=== PATIENT | female | born 1950 | race Caucasian/White ===

== ENCOUNTER 2016-11-18 06:20 | Day surgery (SDC) | payer MEDICARE, OTHER ==
--- NOTE | ~2016-11-18 | OP ---
Record Of Operation [facility] [address] [place]. [address] NAME: CHRISTA PARTIDA : 52 STATUS : REG [facility]#: [id number] AGE: 66 ADM/REG DATE : 11/18/16 MR#: [id number] REPORT SERV DATE: 11/18/16 DICTATED BY: EROS CASIANO DATE: 11/18/16 REPORT STATUS : Draft TRANSCRIBED BY: MODL DATE: 11/18/16 DATE OF PROCEDURE: PROCEDURE PERFORMED: Fiberoptic bronchoscopy, bronchoscopy with bronchoalveolar lavage of two separate lobes. PREOPERATIVE DIAGNOSIS: Bronchiectasis with persistent cough. POSTOPERATIVE DIAGNOSIS: Bronchiectasis with persistent cough plus chronic bronchitis. INDICATION: Bronchiectasis with persistent cough DESCRIPTION OF PROCEDURE: After risks and benefits were explained, informed consent was obtained. The patient received conscious sedation under care of Anesthesiology with use of propofol and did very well with no immediate complications. The bronchoscope was inserted via the right nostril and advanced beyond the vocal cords without difficulty. Her oropharynx was clear. Her lungs were clear. Her lower respiratory tract had some changes of chronic bronchitis with mild hyperemia throughout, and somewhat thick, but very clear secretions in the right middle lobe, with no airway obstruction. No endobronchial lesions. No central mucous plugging, Following airway inspection, we wedged the bronchoscope in the right middle lobe and then in the lingula, infused saline which was suctioned into Lukens trap for bronchoalveolar lavage. Those were combined and pulled together for bronchoalveolar lavage of the lingula and right middle lobe. The bronchoscope was then withdrawn and there were no immediate complications. IMPRESSION: Bronchiectasis and chronic bronchitis. Successful bronchoscopy. YOUNG/EMILEE Eros Casiano M.D. / [id number] CC: Sara Guzman M.D.
[~2016-11-18 06:20] MED LIST: AMIT25 PO; AMITIZA8 MCG PO; ARICEPT5 PO; BACDS PO; BREO ELLIPTA INH; CRESTOR10 PO; CYMBALTA60 PO; DEXLANT PO; DIFLUCAN PO; IMITREX50 PO; KLONO1 PO; LEVAQUIN750 MG PO; LORTAB10 PO; LYRICA225 MG PO; MINIVELLE1 EAC1 TOP; MSCONT15 PO; MULTIVIT/MIN PO; NAMENDA10 MG PO; NORCO1 TAB PO; PRIN20 PO; PROMETRIUM200 MG PO; TRILIPIX135 MG PO; VESICARE10 MG PO; ZYPREXA10 MG PO
[2016-11-18 09:52] LABS: BD FL SOURCE (NOT ORD) BAL; BF TOTAL CELL CT (NOT ORD 376 /MM3; BODY FLUID RBC (NOT ORD) 5000 /MM3
[2016-11-18 10:04] LABS: BD FL LYMPH (NOT ORD) 19 %; BF BASO (NOT OF) 0 %; BF LARGE MONONUCLEAR 29 %; BODY FLUID EOS (NOT ORD) 0 %; BODY FLUID SEG (NOT ORD) 52 %
== END 2016-11-18 23:59 | disposition home or self-care (01) ==
LOC: DMU 06:20
PROVIDERS: Internal Medicine Pulmonary Disease
PROC: 0B958ZX Drainage of Right Middle Lobe Bronchus, Via Natural or Artificial Opening Endoscopic, Diagnostic (ICD-10-PCS; 2016-11-18)
PROC: 0B998ZX Drainage of Lingula Bronchus, Via Natural or Artificial Opening Endoscopic, Diagnostic (ICD-10-PCS; principal; 2016-11-18 08:00)
DX: J47.9 Bronchiectasis, uncomplicated (principal); I10 Essential (primary) hypertension; K21.9 Gastro-esophageal reflux disease without esophagitis; F03.90 Unspecified dementia, unspecified severity, without behavioral disturbance, psychotic disturbance, mood disturbance, and anxiety; K58.9 Irritable bowel syndrome, unspecified; G62.9 Polyneuropathy, unspecified; G43.909 Migraine, unspecified, not intractable, without status migrainosus; H91.93 Unspecified hearing loss, bilateral; E78.00 Pure hypercholesterolemia, unspecified; M19.90 Unspecified osteoarthritis, unspecified site; F41.9 Anxiety disorder, unspecified; F32.9 Major depressive disorder, single episode, unspecified; Z97.4 Presence of external hearing-aid; N20.0 Calculus of kidney; Z90.710 Acquired absence of both cervix and uterus; Z87.440 Personal history of urinary (tract) infections; Z79.899 Other long term (current) drug therapy; Z98.890 Other specified postprocedural states
CPT/HCPCS: 87015; 87070; 87102; 87116; 87205; 88112; 89051

== ENCOUNTER 2016-12-15 23:50 | Inpatient (IN) | payer MEDICARE, OTHER ==
--- NOTE | ~2016-12-15 | IDS ---
Interim Discharge Summary [facility] [address] [place]. [address] NAME: CHRISTA PARTIDA : 52 STATUS : ADM IN PAT#: [id number] AGE: 66 ADM/REG DATE : 12/16/16 MR#: [id number] REPORT SERV DATE: 12/21/16 DICTATED BY: ENEIDA ARTHUR DATE: 12/21/16 REPORT STATUS : Draft TRANSCRIBED BY: MODL DATE: 12/21/16 ADMISSION DATE: 12/16/2016 DISCHARGE DATE: DATE OF INTERIM SUMMARY: 12/20/2016. INTERIM DIAGNOSES: 1. Streptococcus pneumoniae recurrent bronchitis. 2. Chronic obstructive pulmonary disease. 3. Diabetes type 2. 4. Neuropathy. 5. Hypertension. CONSULTATIONS: Infectious Disease. PERTINENT LABS: Lower culture, respiratory, abundant growth of strep pneumoniae. Glomerular basement membrane negative. Proteinase 3 antibody and myeloperoxidase antibody negative. antibody negative. Histoplasmosis is still pending. JUAN JOSE negative. Urine strep negative. BNP 68.3. CT with contrast: Bilateral multifocal lung infiltrates with regions of consolidation in the right middle lobe and lingula consistent with multifocal pneumonia or inflammatory lung disease. No adenopathy. Aberrant right subclavian artery. HOSPITAL COURSE: Please see H and P for complete details of HPI. Briefly, Ms. Partida is a 66-year-old female with history of COPD, diabetes, neuropathy, and hypertension, who presents after having what she initially reports as 1 year's worth of shortness of breath and overall just weakness type feeling that has been progressive over the last few weeks. Has had minimal response to outpatient treatment and supportive therapy. Comes in for continued weakness and increased cough or dyspnea and noted to be on similar to bronchitis type infection. Has been treated for multiple bouts of bronchitis without resolution. The patient was placed on IV steroids, IV antibiotics, with ID and Pulmonary monitoring. Due to CT findings, workup for additional components of cause of recurrent bronchitis being performed. Currently, even histoplasmosis labs are still pending. This patient is continued on IV antibiotics and possible conversion to p.o. antibiotics on 12/21/2016 depending on response on culture and per ID. Her COPD has been improving with IV steroids. We will discontinue IV steroids when okay with Pulmonary. The patient has been on sliding scale insulin for diabetes, and discussed diet changes. Does have abnormal TSH with free T4 within normal limits, likely reactive component, will need outpatient followup. Continued on pregabalin for neuropathy and ALPA inhibitor for hypertension. DISPOSITION: Within 24 to 48 hours depending on ability to convert from IV steroids and IV antibiotics to p.o. and followup as well as activity. The patient also has Physical Therapy evaluation along with Home Health for COPD evaluation. Disposition pending plan from above. Interim Discharge Summary [address] [place]. [address] NAME: CHRISTA PARTIDA : 52 STATUS : ADM IN PAT#: [id number] AGE: 66 ADM/REG DATE : 12/16/16 MR#: [id number] REPORT SERV DATE: 12/21/16 DICTATED BY: ENEIDA ARTHUR DATE: 12/21/16 REPORT STATUS : Draft TRANSCRIBED BY: EMILEE DATE: 12/21/16 DDN/EMILEE Eneida Arthur MD / [id number] CC: MD Jagjit Sosa M.D.
--- NOTE | ~2016-12-15 | CN ---
Consultation Report [facility] [address] [place]. [address] NAME: CHRISTA PARTIDA : 52 STATUS : ADM Yoandy PAT#: [id number] AGE: 66 ADM/REG DATE : 12/15/16 MR#: [id number] REPORT SERV DATE: 12/16/16 DICTATED BY: GIO MORALES DATE: 12/16/16 REPORT STATUS : Draft TRANSCRIBED BY: MODL DATE: 12/16/16 INFECTIOUS DISEASE CONSULT DATE OF CONSULTATION: REASON FOR REFERRAL: Evaluation and treatment of recurrent bronchitis. HISTORY OF PRESENT ILLNESS: The patient is a 66-year-old female with a history of some mild dementia per the record, nephrolithiasis. She said she has began to get sick a year ago with coughing and shortness of breath that was sometimes productive of sputum. She was given several courses of antibiotics by her primary care physician, but never seemed to get completely well, just had waxing and waning coughing and occasional low-grade fevers. She switched primary care physicians late 2016 received a couple of more courses of antibiotics without benefit and was referred to Dr. Casiano, he did a bronchoscopy and lavage on 11/18/2016, it did grow some Haemophilus influenzae. The Gram stain showed few white cells and no organisms. She was treated with Biaxin but did not really feel like she got any better on that. She has received multiple courses of azithromycin, Levaquin, Septra, and doxycycline in the past. She has grown worse this week, had a fever to 101 earlier this week was started by phone on trimethoprim, sulfa, and then referred to the hospital yesterday. She came in. CT scan does show bilateral infiltrates that are noncavitary but there were areas of consolidation suggestive of multifocal pneumonia or inflammatory lung disease. She has had no fever since arriving this time. White blood cell count is normal, procalcitonin has just been ordered. She grew up in [place], she [place] now in [facility] [place]. She has never lived in agricultural area on a farm. [place] traveled [place] and has never been outside the [place] or to the [place]. She has had dogs and cats during her adult life, but has not had any farm animals or livestock or unusual pets and specifically had no chickens, has spent no time in caves. She has done some yard work but not much recently. No heavy dust exposure. Really no unusual environmental exposures. She is a lifelong nonsmoker, but was exposed to secondhand smoke from her parents. PAST MEDICAL HISTORY: Otherwise unremarkable. MEDICATIONS: She is on doxycycline here. ALLERGIES: SHE HAS NO KNOWN ANTIMICROBIAL ALLERGY. 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 She is her who is with her in the room. FAMILY HISTORY: Noncontributory. PHYSICAL EXAMINATION: Consultation Report [address] [place]. [address] NAME: CHRISTA PARTIDA : 52 STATUS : ADM Yoandy PAT#: [id number] AGE: 66 ADM/REG DATE : 12/15/16 MR#: [id number] REPORT SERV DATE: 12/16/16 DICTATED BY: GIO MORALES DATE: 12/16/16 REPORT STATUS : Draft TRANSCRIBED BY: EMILEE DATE: 12/16/16 GENERAL: Nontoxic, elderly female, in no acute distress. She is alert and oriented x3. Her temperature here has been normal at 95.3 at present with a pulse 76, respirations 18, blood pressure 136/68 weight 79 kg. HEENT: Sclerae are clear. No oral lesions. NECK: Supple. LUNGS: Bilateral crackles heard in all lung sevilla. HEART: Regular rate and rhythm. ABDOMEN: Soft, nontender. Positive bowel sounds. EXTREMITIES: Without clubbing, cyanosis, or edema. No swollen, red, or hot joints. No skin lesions or rashes. LABORATORY DATA: White count 7.1, hematocrit 37.1, platelets 264, normal differential of the white count. BUN and creatinine 21 and 1.16, procalcitonin has now come back at 0.09. IMPRESSION: Certainly, I do not think this is any typical bacterial process and may not even in fact be an infection at all, particular with a normal procalcitonin, however, atypical things like fungi, atypical AFB, they have to be considered. RECOMMENDATIONS: 1. We will stop the antibiotics since I do not think it is a typical bacteria. 2. Follow up labs ordered by Pulmonary already, I will add fungal and urine antigens to those. Discussed with Pulmonary tomorrow whether she needs perhaps an actual biopsy, finally I will follow the patient with you. I appreciate very much your consulting on this patient. JOHN Gio Morales M.D. / [id number] CC: MD Jagjit Sosa M.D. Carlos Baleeiro, M.D.
--- NOTE | ~2016-12-15 | PUL ---
[address] [address] NAME: CHRISTA PARTIDA : 52 STATUS : DIS IN PAT#: [id number] AGE: 66 ADM/REG DATE : 12/16/16 MR#: [id number] REPORT SERV DATE: 12/27/16 DICTATED BY: WILFREDO KIDD DATE: 12/25/16 REPORT STATUS : Draft TRANSCRIBED BY: MODL DATE: 12/25/16 PULMONARY FUNCTION TEST PULMONARY FUNCTION TEST: Total valid sampling time was 6 hours 38 minutes and 2 seconds. Saturations were less than 88% for less than 44 seconds. Overnight oximetry did not demonstrate any significant desaturation while on room air. ALEK/WONL Wilfredo Kidd M.D. / [id number] CC: MD Jagjit Cullen M.D.
--- NOTE | ~2016-12-15 | CN ---
Consultation Report [facility] [address] [place]. [address] NAME: AYSE PARTIDA : 52 STATUS : ADM IN PAT#: [id number] AGE: 66 ADM/REG DATE : 12/16/16 MR#: [id number] REPORT SERV DATE: 12/17/16 DICTATED BY: TONIO PHIPPS DATE: 12/17/16 REPORT STATUS : Draft TRANSCRIBED BY: MODL DATE: 12/17/16 CONSULTATION NOTE DATE OF CONSULTATION: 12/17/2016 CHIEF COMPLAINT: Persistent bronchitis. HISTORY OF PRESENT ILLNESS: Mrs. Ayse Partida is a 66-year-old white female with past medical history significant for COPD, previous pneumonia, and gastroesophageal reflux disease, who presents to [facility]'s emergency room with complains of cough and wheezing over a year's duration. It should be noted that Mrs. Partida was seen as recently by our Pulmonary Service in early November when she underwent bronchoscopy. She has had a difficult course in the short interval. Mrs. Partida is followed by Dr. Alejandro Casiano in our outpatient clinic. She does not usually require supplemental oxygen. She is on numerous pulmonary medications including antihistamines, bronchodilators, steroids, and antibiotics. She describes herself as a never smoker, but has had significant secondhand exposure as a child. She does have some reports of mild snoring, but otherwise denies symptomatology related to sleep apnea. She describes her exercise tolerance is being fairly good, being able to walk approximately 100 yards before experiencing some degree of shortness of breath. Mrs. Partida states that she began to have a productive cough as well as wheezing in her chest as early as December of 2015. She was seen by primary care physician and was treated with some mucolytics without much success. In August of 2016, she was provided with several courses of azithromycin. Throughout this time, she has had a waxing and waning course. She was eventually referred to Dr. Casiano for her pulmonary concerns. She did undergo CT imaging. She later underwent bronchoscopy on 11/18/2016. Her sputum was positive for H. influenzae. She was treated with antibiotics. She states that soon after she developed a fever as high as 101.9. Since that time, she has had persistent cough with mucoid sputum. She has coughed so much that she feels that she has a "sore chest." She has had one episode of hemoptysis. She has concomitant fatigue. As she has never had complete resolution over the course of the last year, she eventually presented to the [facility]'s emergency room for further assessment. Mrs. Partida is currently on room air. She does have complaints of wheezing and productive cough. She has no fevers today. She did have a severe pneumonia when she was child. She does have pulmonary function testing that suggest moderate COPD changes. She currently denies any murmurs, angina, or palpitations. She denies any orthopnea or dependent edema. In regard to constitutional symptoms, she denies rigors. She has no nausea or vomiting. She has no radiating chest pain, abdominal pain, or edema. Consultation Report [address] [place]. [address] NAME: AYSE PARTIDA : 52 STATUS : ADM IN [facility]#: [id number] AGE: 66 ADM/REG DATE : 12/16/16 MR#: [id number] REPORT SERV DATE: 12/17/16 DICTATED BY: TONIO PHIPPS DATE: 12/17/16 REPORT STATUS : Draft TRANSCRIBED BY: EMILEE DATE: 12/17/16 PAST MEDICAL HISTORY: 1. COPD. 2. Pneumonia. 3. Nephrolithiasis. 4. Neuropathy. 5. Mild dementia. 6. Gastroesophageal reflux disease. 7. Irritable bowel syndrome/constipation. PAST SURGICAL HISTORY: 1. Appendectomy. 2. Hysterectomy with bilateral salpingo-oophorectomy. 3. Exploratory lap. 4. Reconstructive surgery of the nose. 5. Right knee surgery - partial. FAMILY HISTORY: The patient denies a family history of lung disease. SOCIAL HISTORY: The patient is . She has three children who are in good health. She previously worked in a [employer] shop. She does have cats in the home as well as a poodle. These pets predate her recent pulmonary complaints. She denies any known exposures to dust, silica, or asbestos. She denies any recent sick contacts. TOBACCO/ALCOHOL: As previously mentioned, the patient describes herself as a never smoker but had significant secondhand exposures to tobacco as a child. She denies any recent alcohol or illicit drug use. MEDICATIONS: Prozac 10 mg, prednisone 20 mg, BuSpar 10 mg, levocetirizine 5 mg, montelukast 10 mg, Percocet 10/325, Breo Ellipta, estradiol, duloxetine 30 mg, pregabalin 225 mg, Zanaflex 2 mg, albuterol, metformin 500 mg, rosuvastatin 10 mg, Aricept 10 mg, lisinopril 40 mg, omeprazole 40 mg, aspirin 325 mg. ALLERGIES: THE PATIENT HAS NO KNOWN DRUG ALLERGIES. REVIEW OF SYSTEMS: A complete review of systems was performed with pertinent positives and negatives contained within the body of the HPI. PHYSICAL EXAMINATION: VITAL SIGNS: Blood pressure is 124/61, heart rate is 88, T-max is 97.3, respiratory rate is 18, and SpO2 is 95% on room air. GENERAL: The patient is a pleasant, well-nourished/well-developed female who is not currently exhibiting any signs of acute distress. SKIN: Skin with appropriate texture and turgor. No rashes, lesions, or ulcers. Nails are Consultation Report [address] [address] NAME: AYSE PARTIDA : 52 STATUS : ADM IN [facility]#: [id number] AGE: 66 ADM/REG DATE : 12/16/16 MR#: [id number] REPORT SERV DATE: 12/17/16 DICTATED BY: TONIO PHIPPS DATE: 12/17/16 REPORT STATUS : Draft TRANSCRIBED BY: EMILEE DATE: 12/17/16 clear without cyanosis or clubbing. HEENT: Head: Skull is normocephalic/atraumatic. Facies symmetric. No masses or lesions. Eyes: Sclera anicteric, conjunctiva pink without exudates. Extraocular movements intact. Pupils are equal, round, reactive to light. Ears: Auricles and tragus without pain to palpation. Hearing is grossly intact. Nose: Bilateral nasal patency. Sinuses without tenderness upon palpation. Throat: The patient is Mallampati class 4. Lips, oral mucosa, tongue, palate, and pharynx pink and moist without lesions. Uvula rises equally on phonation. Tongue midline without deviation. NECK: Neck supple. Trachea midline. No cervical lymphadenopathy appreciated. THORAX/LUNGS: Thorax is symmetric with equal chest rise. Breath sounds audible through entire field. Coarse rhonchi and wheezes appreciated throughout. CARDIOVASCULAR: Regular rate and rhythm. No murmurs, rubs, or gallops. Anterior chest without thrills, heaves, or lifts. ABDOMEN: Soft. Nondistended, nontender. Active bowel sounds in all four quadrants. No hepatosplenomegaly noted. PERIPHERAL/VASCULAR: No edema. No varicosities, stasis changes, open sores, ulcerations, or phlebitis. 2+ pulses in radial and dorsalis pedis. MUSCULOSKELETAL: Full AROM and PROM in all joints. No evidence of erythema, deformity, or crepitus. NEUROLOGIC: CN 2 through 12 grossly intact. Good muscle bulk and tone bilaterally. Strength 5/5 throughout. PSYCHIATRIC: The patient demonstrates good judgment and insight. The patient is A and O x3. Accessory data reveals a CRP which was negative. Previous IgE is negative. BNP is 68.3. PA and lateral reveals patchy infiltrate. CT of the chest reveals patchy bilateral infiltrates. IMPRESSION: 1. Bilateral pulmonary infiltrates of questionable etiology. 2. Moderate chronic obstructive pulmonary disease. 3. Chronic bronchitis. 4. Gastroesophageal reflux disease. 5. Hypertension. 6. Skin rash. PLAN: 1. At this time, we will check immunoglobulin assay. We will check some connective tissue labs. Infectious Disease has been consulted as well for further input. 2. In regard to the patient's moderate COPD, she has been placed on aggressive pulmonary regimen. 3. In regard to the patient's chronic bronchitis, again this is mostly symptomatic care at this point. 4. The patient does have some changes consistent with thrush in her oropharynx and as such, we will initiate nystatin therapy. Consultation Report [address] [address] NAME: AYSE PARTIDA : 52 STATUS : ADM IN [facility]#: [id number] AGE: 66 ADM/REG DATE : 12/16/16 MR#: [id number] REPORT SERV DATE: 12/17/16 DICTATED BY: TONIO PHIPPS DATE: 12/17/16 REPORT STATUS : Draft TRANSCRIBED BY: MODL DATE: 12/17/16 The aforementioned impression and plan has been discussed with Dr. Epperson, who will follow further recommendations. We thank you for this consult and look forward participating in the care of Mrs. Ayse Partida. GBS/MODL Tonio Phipps PA-C / [id number] CC: MD Jagjit Sosa M.D.
--- NOTE | ~2016-12-15 | HP ---
History And Physical [id number] [facility] [place]. [address] NAME: CHRISTA PARTIDA : 52 STATUS : ADM Yoandy PAT#: [id number] AGE: 66 ADM/REG DATE : 12/15/16 MR#: [id number] REPORT SERV DATE: 12/16/16 DICTATED BY: DAVID SOLANO DATE: 12/16/16 REPORT STATUS : Draft TRANSCRIBED BY: MODL DATE: 12/16/16 DATE OF ADMISSION: 12/15/2016 CHIEF COMPLAINT: A 66-year-old female presenting with bronchiectasis and recurrent refractory bronchitis. HISTORY OF PRESENT ILLNESS: The patient's history was obtained through careful interview with patient, , and daughter, coupled with review of [facility] and [facility] medical records. The patient states that since around 12/2015 she has been having recurrent bronchitis. She has been on numerous courses of antibiotics including Z-Kelvin, Levaquin, Bactrim Double Strength, Biaxin, and has had Rocephin shots given in the clinic, but despite these medications, has never had complete resolution of bronchitis like symptoms. She finally presented on 11/18/[address] Casiano and had a bronchoscopy. It was felt at that time that the patient had a clinical diagnosis of bronchiectasis, sputum culture, and studies were negative for cancer but did show H. influenzae bacterial infection. Most recently, the patient had completed a course of Biaxin about two to three days prior to this admission, but was still having increasing wheeze, shortness of breath characterized by dyspnea on exertion, and a cough productive of yellow sputum, and today had some blood in it as well. As recently as three days ago, she had developed a fever up to 101.9, and she has had fevers and chills on and off over the last year. She describes chest discomfort, an aching, sore quality at the base of her lungs, exacerbated by coughing 7/10 severity. No nausea or vomiting. No diarrhea. REVIEW OF SYSTEMS: Otherwise, a 14-point review of systems was obtained and was negative. PAST MEDICAL HISTORY: 1. COPD by pulmonary function tests. 2. Bronchiectasis, seen by Dr. Casiano. 3. Pneumonia. 4. Nephrolithiasis, seen by Dr. Arzate. 5. Dementia, mild. 6. Neuropathy. 7. No cardiac disease. PAST SURGICAL HISTORY: 1. Appendectomy. History And Physical [address] [place]. [address] NAME: CHRISTA PARTIDA : 52 STATUS : ADM Yoandy PAT#: [id number] AGE: 66 ADM/REG DATE : 12/15/16 MR#: [id number] REPORT SERV DATE: 12/16/16 DICTATED BY: DAVID SOLANO DATE: 12/16/16 REPORT STATUS : Draft TRANSCRIBED BY: EMILEE DATE: 12/16/16 2. Hysterectomy. 3. Exploratory laparoscopy. 4. Nasal surgery. ALLERGIES: TO "CATGUT SUTURES." SOCIAL HISTORY: She has been exposed to secondhand tobacco throughout her childhood but has never been a smoker herself. No alcohol abuse. She is . Has three children. Lives in [place], [place]. FAMILY HISTORY: Mother and father with COPD. Father at a young age of motor vehicle accident injuries. Mother with early onset Alzheimer's dementia, has now . CURRENT MEDICATIONS: Include albuterol inhaler; aspirin 325 mg daily nasal spray; BuSpar 10 mg p.o. b.i.d.; vitamin D; Biaxin, just completed a few days ago; Aricept 20 mg p.o. daily; Cymbalta 30 mg p.o. daily; Nexium 40 mg p.o. daily; estradiol; TriLipix 135 mg p.o. daily; Prozac 10 mg p.o. daily; Breo Ellipta inhaled every morning; Xyzal 5 mg p.o. at bedtime; lisinopril 40 mg p.o. daily; metformin 500 mg p.o. b.i.d.; Singulair 10 mg p.o. daily; Percocet p.r.n.; Prednisone 40 mg p.o. daily; Lyrica 225 mg p.o. b.i.d.; progesterone; Crestor 10 mg p.o. daily; VESIcare 10 mg p.o. daily; Bactrim double strength recently; Zanaflex steroid injections; and Rocephin recently. PHYSICAL EXAMINATION: VITAL SIGNS: Temperature 98.4, pulse 71, blood pressure 190/91, respiratory rate 18, and O2 saturation 97% on room air. GENERAL: A pleasant, cooperative female. She does not appear in any particular distress to me. HEENT: Pupils equal, round, and reactive to light. No conjunctival pallor. No scleral icterus. Nares are patent. Oropharynx is clear of obstruction. Moist mucous membranes. NECK: Trachea midline. No thyromegaly. LYMPH: No cervical lymphadenopathy. No supraclavicular lymphadenopathy. RESPIRATORY: Inspiratory and expiratory wheezes are noted. Very harsh rhonchi on examination throughout but particularly at the base of lungs symmetrically. No focal egophony. No rales. The patient has a labored respiratory effort but not in any particular distress. CARDIOVASCULAR: Regular rate and rhythm. No murmurs, rubs, or gallops. No current extremity edema is appreciated. ABDOMEN: Soft, nontender, nondistended. Normal bowel sounds auscultated throughout. No hepatosplenomegaly. DERMATOLOGICAL: Warm, dry extremities. No pallor. No cyanosis. PSYCHIATRIC: Normal affect. Good mood. Alert and oriented x3. LABORATORY DATA: White blood cell count 9.9, hemoglobin 12, hematocrit 37, and platelets 289. Sodium 137, potassium 3.7, chloride 103, bicarb 26, BUN 23, creatinine 1.1, and glucose 91. Liver enzymes within normal limits. STUDIES: History And Physical [address] [address] NAME: CHRISTA PARTIDA : 52 STATUS : ADM Yoandy PAT#: [id number] AGE: 66 ADM/REG DATE : 12/15/16 MR#: [id number] REPORT SERV DATE: 12/16/16 DICTATED BY: DAVID SOLANO DATE: 12/16/16 REPORT STATUS : Draft TRANSCRIBED BY: MOD DATE: 12/16/16 1. Chest x-ray by my own evaluation shows chronic basilar lung disease compared to old x- ray but nothing acute. 2. EKG by my own evaluation shows sinus rhythm. No major abnormalities. ASSESSMENT AND PLAN: 1. Persistent uncontrolled bronchiectasis with hemoptysis. Recheck a CT scan of the chest. Request imaging from [facility], about a month ago. Consult Dr. Casiano, solar systems designer. Consult Dr. Barksdale, Infectious Disease. 2. Chronic obstructive pulmonary disease exacerbation with a prominent wheeze and evidence of moderate obstruction by pulmonary function tests. The patient had significant secondhand tobacco from childhood. We will try steroids, doxycyclines, DuoNeb nebulizers. KPL/MODL David Solano M.D. / [id number] CC: Lenny Xie Jr, MD Christopher Greene, M.D. Carlos Baleeiro, M.D.
--- NOTE | ~2016-12-15 | DS ---
Discharge Summary [address] [place]. [address] NAME: CHRISTA PARTIDA : 52 STATUS : DIS IN PAT#: [id number] AGE: 66 ADM/REG DATE : 12/16/16 MR#: [id number] REPORT SERV DATE: 12/23/16 DICTATED BY: SATISH BANDA DATE: 12/22/16 REPORT STATUS : Draft TRANSCRIBED BY: EMILEE DATE: 12/22/16 ADMISSION DATE: 12/16/2016 DISCHARGE DATE: 12/22/2016 CONSULTATION: Pulmonology, Dr. Morales. PROCEDURE: Fiberoptic bronchoscopy with bronchoalveolar lavage in two separate lobes performed by Dr. Alejandro Casiano. IMPRESSION: Bronchiectasis with chronic bronchitis, successful bronchoscopy. Last cytology report and final pathological diagnosis: Right middle lobe and lingular bronchoalveolar lavage, negative for malignant cells. DISCHARGE DIAGNOSES: 1. Acute bronchitis with bronchiectasis. 2. Chronic obstructive pulmonary disease exacerbation. 3. Hemoptysis. 4. Diabetes mellitus type 2. 5. Streptococcus pneumoniae. 6. Hypertension. HISTORY OF PRESENT ILLNESS: For detailed HPI, please make reference to Dr. Luis Daniel Hdez's dictation on 12/15/2016. In brief, this is a 66-year-old female with history of bronchiectasis with recurrent and refractory bronchitis, who presented to the emergency room department with complaints of worsening cough and fever. The cough was productive of blood- tinged sputum, concerning for possible hemoptysis. Hence, the patient decided to come into the hospital for further evaluation. Of note, prior to presentation, the patient had extensive history of recurrent bronchitis and known to follow up with Dr. Casiano, (patient's primary lease examiner). The patient's primary lease examiner was consulted on presentation and recommended further inpatient evaluation. A CT scan was done in the emergency room, which shows bilateral multifocal lung infiltrate with regions of consolidation in the right middle lobe and lingula. The findings are consistent with multifocal pneumonia and inflammatory lung disease. No adenopathy is noted. Given these findings of concern for possible pneumonia, the patient was admitted to the Hospitalist Service for further evaluation under the supervision and care of the lease examiner, Dr. Casiano. HOSPITAL COURSE: The patient's sputum cultures grew Strep pneumoniae. ID was consulted. The patient was initially placed on IV vancomycin and was subsequently transitioned to p.o. levofloxacin at the time of discharge. During the course of this admission, the patient underwent a bronchoscopy, performed by Dr. Casiano, that shows no evidence of malignant cells, but noted to have some neutrophils. The patient also received aggressive DuoNeb with some IV steroids during the course of this admission. The patient's shortness of breath, fever, and white blood cell continued to trend down prior to discharge. At the time of discharge, the patient had no further episodes of shortness of breath. No further episodes Discharge Summary [address] [address] NAME: CHRISTA PARTIDA : 52 STATUS : DIS IN PAT#: [id number] AGE: 66 ADM/REG DATE : 12/16/16 MR#: [id number] REPORT SERV DATE: 12/23/16 DICTATED BY: SATISH BANDA DATE: 12/22/16 REPORT STATUS : Draft TRANSCRIBED BY: EMILEE DATE: 12/22/16 of wheezing. The patient was discharged home on p.o. levofloxacin and prednisone taper, and to follow up with primary lease examiner as outpatient. DISCHARGE MEDICATIONS: 1. Aspirin 325 mg p.o. daily. 2. Fenofibric acid 135 mg p.o. daily. 3. Levofloxacin 750 mg p.o. daily. 4. Prednisone taper. 5. BuSpar 10 mg p.o. b.i.d. 6. Vitamin D3. 7. Aricept 20 mg p.o. at bedtime. 8. Cymbalta 30 mg p.o. with breakfast. 9. Prozac 10 mg p.o. every morning. 10.Lisinopril 20 mg p.o. daily. 11.Singulair 10 mg p.o. daily. 12.Xyzal 5 mg p.o. at bedtime. 13.Nexium 40 mg p.o. in the morning. 14.Lyrica 225 mg p.o. b.i.d. 15.VESIcare 10 mg p.o. at bedtime. 16.Metformin 500 mg p.o. b.i.d. 17.Crestor 10 mg p.o. at bedtime. DISCHARGE FOLLOWUP: 1. To follow up with lease examiner, Dr. Casiano, in three-four weeks after discharge. Also to consider a repeat CT scan when the patient follows up with Dr. Casiano as recommended by the Pulmonology team. 2. Follow up with primary care physician within one-two weeks of discharge. DISCHARGE ACTIVITIES: As tolerated. DISCHARGE CONDITION: Stable. Greater than 35 minutes was used to prepare this patient's discharge, reconcile medication, and advised the patient on discharge plans and followup. IOO/MODL Satish Banda MD / [id number] CC: MD Jagjit Cullen M.D.
[2016-12-15 21:17] LABS: BASOPHILS 0.1 %; BASOPHILS ABSOLUTE 0.01 10/3/uL (0.0-0.16); EOSINOPHILS 0.2 %; EOSINOPHILS ABSOLUTE 0.02 10/3/uL (0.0-0.53); HEMATOCRIT 37.3 % (36.0-48.0); HEMOGLOBIN 12.3 g/dL (12.0-16.0); IMMATURE GRANULOCYTES 0.8 %; IMMATURE GRANULOCYTES ABSOLUTE 0.08 10/3/uL (0.0-0.11); LYMPHOCYTES 22.8 %; LYMPHOCYTES ABSOLUTE 2.26 10/3/uL (0.67-4.30); MEAN PLATELET VOLUME 10.7 fL (9.2-13.0); MONOCYTES 7.1 %; NEUTROPHILS ABSOLUTE 6.84 10/3/uL (2.02-8.40); PLATELET COUNT 289 10/3/uL (150-400); RBC DISTRIBUTION WIDTH 14.6 % (12.0-16.0); RED CELL COUNT 4.24 10/6/uL (4.0-5.6)
[2016-12-15 21:23] LABS: ER CBC TAT 0 Hrs 12 Mins; MANUAL DIFF NO %; WHITE BLOOD CELLS 9.9 10/3/uL (4.5-10.5)
[2016-12-15 21:33] LABS: ALKALINE PHOSPHATASE 62 U/L (45-117); CALCIUM, SERUM 8.9 MG/DL (8.5-10.4); CHLORIDE, SERUM 103 MMOL/L (96-112); CO2 (CARBON DIOXIDE) 26 MMOL/L (24-34); CREATININE 1.14 MG/DL (0.55-1.02); GFR AFRICAN AMERICAN 58 ML/MIN (>=60); GFR NON AFRICAN AMERICAN 50 ML/MIN (>=60); GLUCOSE, SERUM 91 MG/DL (60-99); POTASSIUM, SERUM 3.7 MMOL/L (3.5-5.3); SGOT(AST) 11 U/L (5-40); SGPT(ALT) 21 U/L (5-65); SODIUM, SERUM 137 MMOL/L (135-148); TOTAL BILIRUBIN 0.2 MG/DL (0-1.2); TOTAL PROTEIN 7.1 G/DL (6.0-8.5)
[2016-12-15 21:34] LABS: A/G RATIO 0.8 (0.7-1.9); ALBUMIN 3.2 G/DL (3.5-5.0); BUN (BLOOD UREA NITROGEN) 23 MG/DL (6-23); GLOBULIN 3.9 G/DL (2.5-4.1)
[2016-12-16] MEDS ORDERED: PROZ10 PO (01:30)
[2016-12-16] MEDS ORDERED: BACTRIM DS1 TAB PO (01:31)
[2016-12-16] MEDS ORDERED: P20 PO (01:33)
[2016-12-16] MEDS ORDERED: ROCEPHIN IM (01:34)
[2016-12-16] MEDS ORDERED: STEROID INJECTION IM (01:34)
[2016-12-16] MEDS ORDERED: BUSPAR10 PO (01:35)
[2016-12-16] MEDS ORDERED: XYZAL5 MG PO (01:35)
[2016-12-16] MEDS ORDERED: BIAXIN5 PO (01:36)
[2016-12-16] MEDS ORDERED: SINGULAIR1 PO (01:37)
[2016-12-16] MEDS ORDERED: ASTEPRO0.15 % NAS (01:39)
[2016-12-16] MEDS ORDERED: PERCOCET 10/3251 TAB PO (01:39)
[2016-12-16] MEDS ORDERED: BREO ELLIPTA 21 EACH INH (01:41)
[2016-12-16] MEDS ORDERED: CYMBALTA30 PO (01:42)
[2016-12-16] MEDS ORDERED: MINIVELLE1 EAC1 TOP (01:42)
[2016-12-16] MEDS ORDERED: LYRICA225 MG PO (01:43)
[2016-12-16] MEDS ORDERED: ZANAFLEX2 MG PO (01:44)
[2016-12-16] MEDS ORDERED: PROAIR HFA INH (01:44)
[2016-12-16] MEDS ORDERED: CRESTOR10 PO (01:45)
[2016-12-16] MEDS ORDERED: FORTAMET500 MG PO (01:45)
[2016-12-16] MEDS ORDERED: ARICEPT10 PO (01:49)
[2016-12-16] MEDS ORDERED: TRILIPIX135 MG PO (01:51)
[2016-12-16] MEDS ORDERED: LISINOPRIL40 MG PO (01:52)
[2016-12-16] MEDS ORDERED: NEXIUM40 PO (01:53)
[2016-12-16] MEDS ORDERED: PROMETRIUM200 MG PO (01:53)
[2016-12-16] MEDS ORDERED: VESICARE10 MG PO (01:54)
[2016-12-16] MEDS ORDERED: ASABAYER PO (01:56)
[2016-12-16] MEDS ORDERED: VITAMIN D31000 UNIT PO (01:56)
[2016-12-16 12:00] LABS: PARTIAL THROMBO TIME 29.6 SEC (22.5-37.2); PROTIME (NOT ORD) 12.8 SEC (12.0-14.5)
[2016-12-16 12:03] LABS: BASOPHILS 0.3 %; BASOPHILS ABSOLUTE 0.02 10/3/uL (0.0-0.16); EOSINOPHILS 0.1 %; EOSINOPHILS ABSOLUTE 0.01 10/3/uL (0.0-0.53); HEMATOCRIT 37.1 % (36.0-48.0); HEMOGLOBIN 12.4 g/dL (12.0-16.0); IMMATURE GRANULOCYTES 0.7 %; IMMATURE GRANULOCYTES ABSOLUTE 0.05 10/3/uL (0.0-0.11); LYMPHOCYTES 13.7 %; LYMPHOCYTES ABSOLUTE 0.97 10/3/uL (0.67-4.30); MANUAL DIFF NO %; MEAN CORPUS HGB CONC 33.4 g/dL (32.0-36.0); MEAN CORPUSCULAR HEMOGLOB 29.5 pg (26.0-34.0); MEAN CORPUSCULAR VOLUME 88.3 fL (80-100); MEAN PLATELET VOLUME 11.2 fL (9.2-13.0); MONOCYTES 3.2 %; MONOCYTES ABSOLUTE 0.23 10/3/uL (0.21-1.20); PLATELET COUNT 264 10/3/uL (150-400); RBC DISTRIBUTION WIDTH 14.4 % (12.0-16.0); WHITE BLOOD CELLS 7.1 10/3/uL (4.5-10.5)
[2016-12-16 12:15] LABS: A/G RATIO 0.8 (0.7-1.9); ALBUMIN 3.1 G/DL (3.5-5.0); ALKALINE PHOSPHATASE 65 U/L (45-117); BUN (BLOOD UREA NITROGEN) 21 MG/DL (6-23); CALCIUM, SERUM 8.8 MG/DL (8.5-10.4); CHLORIDE, SERUM 101 MMOL/L (96-112); CO2 (CARBON DIOXIDE) 26 MMOL/L (24-34); CREATININE 1.16 MG/DL (0.55-1.02); GFR AFRICAN AMERICAN 57 ML/MIN (>=60); GFR NON AFRICAN AMERICAN 49 ML/MIN (>=60); GLOBULIN 3.8 G/DL (2.5-4.1); POTASSIUM, SERUM 4.4 MMOL/L (3.5-5.3); SGOT(AST) 10 U/L (5-40); SGPT(ALT) 22 U/L (5-65); SODIUM, SERUM 138 MMOL/L (135-148); TOTAL BILIRUBIN 0.5 MG/DL (0-1.2); TOTAL PROTEIN 6.9 G/DL (6.0-8.5); TROPONIN I <0.02 NG/ML (<0.05)
[2016-12-16 12:17] LABS: GLUCOSE, SERUM 165 MG/DL (60-99); ULTRASENSITIVE TSH 0.279 MCIU/ML (0.358-3.740)
[2016-12-16 15:34] LABS: PROCALCITONIN 0.09 ng/mL (<0.5)
[2016-12-16 17:49] LABS: IMMUNOGLOBULIN A 146 MG/DL (70-420); IMMUNOGLOBULIN G 683 MG/DL (673-1464); IMMUNOGLOBULIN M 71 MG/DL (30-270)
[2016-12-16 17:50] LABS: RHEUMATOID FACTOR QUANT < 10 IU/ML (0-15)
[2016-12-16 20:57] LABS: ASCORBIC ACID (UR NOT ORDER) NEG (NEG); BILIRUBIN, URINE NEGATIVE (NEG); KETONE, URINE NEGATIVE (NEG); LEUKOCYTE ESTERASE(NOT OR NEG (NEG); WBC (NOT ORDERED) (RFLEX) < 1 (0-5)
[2016-12-17 04:02] LABS: BASOPHILS 0.5 %; BASOPHILS ABSOLUTE 0.04 10/3/uL (0.0-0.16); EOSINOPHILS 0 %; HEMATOCRIT 36.9 % (36.0-48.0); HEMOGLOBIN 12.3 g/dL (12.0-16.0); IMMATURE GRANULOCYTES 3.4 %; IMMATURE GRANULOCYTES ABSOLUTE 0.29 10/3/uL (0.0-0.11); LYMPHOCYTES 13.8 %; LYMPHOCYTES ABSOLUTE 1.18 10/3/uL (0.67-4.30); MEAN CORPUS HGB CONC 33.3 g/dL (32.0-36.0); MEAN CORPUSCULAR HEMOGLOB 29.3 pg (26.0-34.0); MEAN CORPUSCULAR VOLUME 87.9 fL (80-100); MEAN PLATELET VOLUME 10.8 fL (9.2-13.0); MONOCYTES 12.3 %; MONOCYTES ABSOLUTE 1.05 10/3/uL (0.21-1.20); NEUTROPHILS ABSOLUTE 5.96 10/3/uL (2.02-8.40); PLATELET COUNT 308 10/3/uL (150-400); RBC DISTRIBUTION WIDTH 14.2 % (12.0-16.0); WHITE BLOOD CELLS 8.5 10/3/uL (4.5-10.5)
[2016-12-17 04:11] LABS: MANUAL DIFF NO %
[2016-12-17 04:16] LABS: BUN (BLOOD UREA NITROGEN) 18 MG/DL (6-23); CALCIUM, SERUM 8.8 MG/DL (8.5-10.4); CHLORIDE, SERUM 101 MMOL/L (96-112); CO2 (CARBON DIOXIDE) 27 MMOL/L (24-34); FREE T4 1.06 NG/DL (0.76-1.46); GFR AFRICAN AMERICAN 61 ML/MIN (>=60); GFR NON AFRICAN AMERICAN 53 ML/MIN (>=60); GLUCOSE, SERUM 133 MG/DL (60-99); POTASSIUM, SERUM 4.4 MMOL/L (3.5-5.3); SODIUM, SERUM 137 MMOL/L (135-148); ULTRASENSITIVE TSH 0.232 MCIU/ML (0.358-3.740)
[2016-12-17 10:57] LABS: ANA TITER <1:40 TITER
[2016-12-18 04:55] LABS: HEMATOCRIT 39.2 % (36.0-48.0); MEAN CORPUS HGB CONC 33.2 g/dL (32.0-36.0); MEAN CORPUSCULAR HEMOGLOB 29.6 pg (26.0-34.0); MEAN CORPUSCULAR VOLUME 89.3 fL (80-100); PLATELET COUNT 322 10/3/uL (150-400); RBC DISTRIBUTION WIDTH 14.5 % (12.0-16.0); RED CELL COUNT 4.39 10/6/uL (4.0-5.6); WHITE BLOOD CELLS 12.2 10/3/uL (4.5-10.5)
[2016-12-18 04:56] LABS: MANUAL DIFF YES %
[2016-12-18 05:22] LABS: CALCIUM, SERUM 9.1 MG/DL (8.5-10.4); CHLORIDE, SERUM 102 MMOL/L (96-112); CO2 (CARBON DIOXIDE) 29 MMOL/L (24-34); CREATININE 1.17 MG/DL (0.55-1.02); GFR AFRICAN AMERICAN 57 ML/MIN (>=60); GFR NON AFRICAN AMERICAN 49 ML/MIN (>=60); GLUCOSE, SERUM 115 MG/DL (60-99); POTASSIUM, SERUM 4.7 MMOL/L (3.5-5.3); SODIUM, SERUM 139 MMOL/L (135-148)
[2016-12-18 05:35] LABS: BUN (BLOOD UREA NITROGEN) 26 MG/DL (6-23)
[2016-12-18 06:29] LABS: BAND NEUTROPHILS 3 %; EOSINOPHILS 1 %; EOSINOPHILS ABSOLUTE (CALC) 0.12 10/3/uL (0.0-0.53); IMMATURE GRANS ABSOLUTE (CALC) 0.49 10/3/uL (0.0-0.11); LYMPHOCYTES 21 %; LYMPHOCYTES ABSOLUTE (CALC) 2.56 10/3/uL (0.67-4.30); METAMYELOCYTES 3 %; MONOCYTES 11 %; MONOCYTES ABSOLUTE (CALC) 1.34 10/3/uL (0.21-1.20); MYELOCYTES 1 %; NEUTROPHILS ABSOLUTE (CALC) 7.69 10/3/uL (2.02-8.40); PLATELET ESTIMATE ADQ (ADEQUATE); POLYCHROMASIA 1+ (2-5/OIF) (0-1/OIF); SEGMENTED NEUTROPHIL (0) 60 %; TOTAL NUCLEATED CELLS 100; TOXIC GRANULATION SLT; VACUOLATED NEUTROPHILES OCC
[2016-12-18 18:11] LABS: MYELOPEROXIDASE ANTIBODY <0.2 AI (<1.0); PROTEINASE 3 ANTIBODY <0.2 AI (<1.0)
[2016-12-19 06:47] LABS: HEMATOCRIT 40.7 % (36.0-48.0); HEMOGLOBIN 13.3 g/dL (12.0-16.0); MEAN CORPUS HGB CONC 32.7 g/dL (32.0-36.0); MEAN CORPUSCULAR HEMOGLOB 29.4 pg (26.0-34.0); MEAN PLATELET VOLUME 10.8 fL (9.2-13.0); PLATELET COUNT 341 10/3/uL (150-400); RBC DISTRIBUTION WIDTH 14.8 % (12.0-16.0); RED CELL COUNT 4.52 10/6/uL (4.0-5.6); WHITE BLOOD CELLS 13.2 10/3/uL (4.5-10.5)
[2016-12-19 06:48] LABS: MANUAL DIFF YES %
[2016-12-19 06:58] LABS: BUN (BLOOD UREA NITROGEN) 23 MG/DL (6-23); CALCIUM, SERUM 9.2 MG/DL (8.5-10.4); CHLORIDE, SERUM 100 MMOL/L (96-112); CO2 (CARBON DIOXIDE) 31 MMOL/L (24-34); CREATININE 1.04 MG/DL (0.55-1.02); GFR AFRICAN AMERICAN 65 ML/MIN (>=60); GFR NON AFRICAN AMERICAN 56 ML/MIN (>=60); GLUCOSE, SERUM 104 MG/DL (60-99); POTASSIUM, SERUM 4.6 MMOL/L (3.5-5.3); SODIUM, SERUM 138 MMOL/L (135-148)
[2016-12-19 07:40] LABS: BAND NEUTROPHILS 3 %; IMMATURE GRANS ABSOLUTE (CALC) 0.53 10/3/uL (0.0-0.11); LYMPHOCYTES 28 %; METAMYELOCYTES 3 %; MONOCYTES 8 %; MONOCYTES ABSOLUTE (CALC) 1.06 10/3/uL (0.21-1.20); MYELOCYTES 1 %; NEUTROPHILS ABSOLUTE (CALC) 7.92 10/3/uL (2.02-8.40); SEGMENTED NEUTROPHIL (0) 57 %; TOTAL NUCLEATED CELLS 100
[2016-12-19 07:41] LABS: PLATELET ESTIMATE ADQ (ADEQUATE); RBC MORPHOLOGY NORM (NORMAL)
[2016-12-20 02:39] LABS: HEMATOCRIT 42.2 % (36.0-48.0); HEMOGLOBIN 13.5 g/dL (12.0-16.0); MEAN CORPUSCULAR HEMOGLOB 28.8 pg (26.0-34.0); MEAN PLATELET VOLUME 10.7 fL (9.2-13.0); PLATELET COUNT 366 10/3/uL (150-400); RBC DISTRIBUTION WIDTH 14.9 % (12.0-16.0); RED CELL COUNT 4.69 10/6/uL (4.0-5.6); WHITE BLOOD CELLS 16.1 10/3/uL (4.5-10.5)
[2016-12-20 02:45] LABS: MANUAL DIFF YES %
[2016-12-20 02:48] LABS: CALCIUM, SERUM 9.1 MG/DL (8.5-10.4); CHLORIDE, SERUM 101 MMOL/L (96-112); CO2 (CARBON DIOXIDE) 29 MMOL/L (24-34); CREATININE 1.33 MG/DL (0.55-1.02); GFR AFRICAN AMERICAN 48 ML/MIN (>=60); GFR NON AFRICAN AMERICAN 42 ML/MIN (>=60); GLUCOSE, SERUM 121 MG/DL (60-99); POTASSIUM, SERUM 4.5 MMOL/L (3.5-5.3); SODIUM, SERUM 140 MMOL/L (135-148); VANCOMYCIN TROUGH 10.8 MCG/ML (10.0-20.0)
[2016-12-20 02:51] LABS: BUN (BLOOD UREA NITROGEN) 33 MG/DL (6-23)
[2016-12-20 03:55] LABS: BAND NEUTROPHILS 3 %; IMMATURE GRANS ABSOLUTE (CALC) 0.48 10/3/uL (0.0-0.11); LYMPHOCYTES 21 %; LYMPHOCYTES ABSOLUTE (CALC) 3.38 10/3/uL (0.67-4.30); METAMYELOCYTES 3 %; MONOCYTES 7 %; MONOCYTES ABSOLUTE (CALC) 1.13 10/3/uL (0.21-1.20); NEUTROPHILS ABSOLUTE (CALC) 11.11 10/3/uL (2.02-8.40); PLATELET ESTIMATE ADQ (ADEQUATE); SEGMENTED NEUTROPHIL (0) 66 %; TOTAL NUCLEATED CELLS 100
[2016-12-20 22:05] LABS: BLASTOMYCES ANTIBODY BY CF <1:8 (())
[2016-12-21 07:05] LABS: BUN (BLOOD UREA NITROGEN) 34 MG/DL (6-23); CHLORIDE, SERUM 103 MMOL/L (96-112); CO2 (CARBON DIOXIDE) 30 MMOL/L (24-34); CREATININE 1.12 MG/DL (0.55-1.02); GFR AFRICAN AMERICAN 60 ML/MIN (>=60); GFR NON AFRICAN AMERICAN 52 ML/MIN (>=60); HEMATOCRIT 39.4 % (36.0-48.0); HEMOGLOBIN 12.7 g/dL (12.0-16.0); MEAN CORPUS HGB CONC 32.2 g/dL (32.0-36.0); MEAN CORPUSCULAR HEMOGLOB 29.4 pg (26.0-34.0); MEAN CORPUSCULAR VOLUME 91.2 fL (80-100); MEAN PLATELET VOLUME 10.7 fL (9.2-13.0); PLATELET COUNT 289 10/3/uL (150-400); POTASSIUM, SERUM 4.8 MMOL/L (3.5-5.3); RBC DISTRIBUTION WIDTH 14.7 % (12.0-16.0); RED CELL COUNT 4.32 10/6/uL (4.0-5.6); SGOT(AST) 11 U/L (5-40); SGPT(ALT) 13 U/L (5-65); SODIUM, SERUM 140 MMOL/L (135-148); TOTAL BILIRUBIN 0.2 MG/DL (0-1.2); WHITE BLOOD CELLS 11.4 10/3/uL (4.5-10.5)
[2016-12-21 07:06] LABS: A/G RATIO 1.2 (0.7-1.9); ALKALINE PHOSPHATASE 39 U/L (45-117); CALCIUM, SERUM 8.1 MG/DL (8.5-10.4); GLOBULIN 2.5 G/DL (2.5-4.1); GLUCOSE, SERUM 72 MG/DL (60-99); TOTAL PROTEIN 5.5 G/DL (6.0-8.5)
[2016-12-21 07:11] LABS: MANUAL DIFF YES %
[2016-12-21 07:44] LABS: BAND NEUTROPHILS 1 %; EOSINOPHILS 1 %; EOSINOPHILS ABSOLUTE (CALC) 0.11 10/3/uL (0.0-0.53); LYMPHOCYTES 29 %; LYMPHOCYTES ABSOLUTE (CALC) 3.31 10/3/uL (0.67-4.30); METAMYELOCYTES 7 %; MONOCYTES 3 %; MONOCYTES ABSOLUTE (CALC) 0.34 10/3/uL (0.21-1.20); NEUTROPHILS ABSOLUTE (CALC) 6.84 10/3/uL (2.02-8.40); PLATELET ESTIMATE ADQ (ADEQUATE); RBC MORPHOLOGY NORM (NORMAL); SEGMENTED NEUTROPHIL (0) 59 %; TOTAL NUCLEATED CELLS 100
[2016-12-21 07:47] LABS: PROCALCITONIN <0.05 ng/mL (<0.5)
[2016-12-22 06:18] LABS: HEMATOCRIT 38.7 % (36.0-48.0); HEMOGLOBIN 12.4 g/dL (12.0-16.0); MEAN CORPUSCULAR HEMOGLOB 28.9 pg (26.0-34.0); MEAN CORPUSCULAR VOLUME 90.2 fL (80-100); MEAN PLATELET VOLUME 10.6 fL (9.2-13.0); PLATELET COUNT 306 10/3/uL (150-400); RBC DISTRIBUTION WIDTH 14.8 % (12.0-16.0); RED CELL COUNT 4.29 10/6/uL (4.0-5.6); WHITE BLOOD CELLS 13.2 10/3/uL (4.5-10.5)
[2016-12-22 06:30] LABS: MANUAL DIFF YES %
[2016-12-22 06:47] LABS: IMMATURE GRANS ABSOLUTE (CALC) 0.53 10/3/uL (0.0-0.11); LYMPHOCYTES 38 %; LYMPHOCYTES ABSOLUTE (CALC) 5.02 10/3/uL (0.67-4.30); METAMYELOCYTES 4 %; MONOCYTES 6 %; MONOCYTES ABSOLUTE (CALC) 0.79 10/3/uL (0.21-1.20); NEUTROPHILS ABSOLUTE (CALC) 6.86 10/3/uL (2.02-8.40); SEGMENTED NEUTROPHIL (0) 52 %; TOTAL NUCLEATED CELLS 100
[2016-12-22 06:48] LABS: PLATELET ESTIMATE ADQ (ADEQUATE); RBC MORPHOLOGY NORM (NORMAL)
[2016-12-22] MEDS ORDERED: LEVAQUIN750 MG PO (11:00)
[2016-12-22] MEDS ORDERED: PRIN20 PO (11:01)
[2016-12-22] MEDS ORDERED: DUONEB INH (11:13)
[2016-12-22 13:23] LABS: BLASTOMYCES DERMATITIDIS AG None detected ng/mL (<0.20); SOURCE Urine (())
[2016-12-22 13:26] LABS: HISTOPLASMA AG SOURCE Urine (()); HISTOPLASMA ANTIGEN None detected (())
[2016-12-23 09:51] LABS: HISTOPLASMA AG SOURCE Urine (()); HISTOPLASMA ANTIGEN None detected (())
== END 2016-12-22 14:15 | disposition home health service (06) | DRG 190 ==
LOC: ER 23:50 → ER/OF 23:59 → 5NO 12-16 06:25
PROVIDERS: Emergency Medicine; Hospitalist; Internal Medicine Infectious Disease; Physician Assistant Medical; Student in an Organized Health Care Education/Training Program
DX: J44.1 Chronic obstructive pulmonary disease with (acute) exacerbation (principal); J15.4 Pneumonia due to other streptococci; B37.0 Candidal stomatitis; E11.40 Type 2 diabetes mellitus with diabetic neuropathy, unspecified; R04.2 Hemoptysis; K21.9 Gastro-esophageal reflux disease without esophagitis; Z87.01 Personal history of pneumonia (recurrent); Z77.29 Contact with and (suspected) exposure to other hazardous substances; I10 Essential (primary) hypertension; J44.0 Chronic obstructive pulmonary disease with (acute) lower respiratory infection; F03.90 Unspecified dementia, unspecified severity, without behavioral disturbance, psychotic disturbance, mood disturbance, and anxiety; Z79.84 Long term (current) use of oral hypoglycemic drugs; Z79.82 Long term (current) use of aspirin
CPT/HCPCS: 71020; 71260; 80048; 80053; 80202; 81001; 82784; 83516; 83735; 83880; 84145; 84439; 84443; 84484; 85025; 85610; 85730; 86021; 86039; 86431; 86612; 87040; 87070; 87077; 87186; 87205; 87385; 87449; 93005; 94640; 94668; 94762; 99285; A9270-GY; J2920; J3370; Q9967

== ENCOUNTER 2017-02-15 02:54 | Emergency (ER) | payer MEDICARE, OTHER ==
[~2017-02-15 02:54] MED LIST changes: +ARICEPT10 PO; +ASABAYER PO; +ASTEPRO0.15 % NAS; +BACTRIM DS1 TAB PO; +BIAXIN5 PO; +BREO ELLIPTA 21 EACH INH; +BUSPAR10 PO; +CYMBALTA30 PO; +DUONEB INH; +FORTAMET500 MG PO; +LISINOPRIL40 MG PO; +NEXIUM40 PO; +P20 PO; +PERCOCET 10/3251 TAB PO; +PROAIR HFA INH; +PROZ10 PO; +ROCEPHIN IM; +SINGULAIR1 PO; +STEROID INJECTION IM; +VITAMIN D31000 UNIT PO; +XYZAL5 MG PO; +ZANAFLEX2 MG PO
[2017-02-15 03:10] LABS: BASOPHILS 0.4 %; BASOPHILS ABSOLUTE 0.04 10/3/uL (0.0-0.16); EOSINOPHILS 0.4 %; EOSINOPHILS ABSOLUTE 0.04 10/3/uL (0.0-0.53); HEMATOCRIT 40.6 % (36.0-48.0); HEMOGLOBIN 13.5 g/dL (12.0-16.0); IMMATURE GRANULOCYTES 0.3 %; IMMATURE GRANULOCYTES ABSOLUTE 0.03 10/3/uL (0.0-0.11); LYMPHOCYTES 15.6 %; LYMPHOCYTES ABSOLUTE 1.72 10/3/uL (0.67-4.30); MEAN CORPUS HGB CONC 33.3 g/dL (32.0-36.0); MEAN CORPUSCULAR HEMOGLOB 29.6 pg (26.0-34.0); MEAN PLATELET VOLUME 10.8 fL (9.2-13.0); MONOCYTES 5.6 %; MONOCYTES ABSOLUTE 0.62 10/3/uL (0.21-1.20); NEUTROPHILS 77.7 %; NEUTROPHILS ABSOLUTE 8.57 10/3/uL (2.02-8.40); PLATELET COUNT 282 10/3/uL (150-400); RBC DISTRIBUTION WIDTH 14.1 % (12.0-16.0); RED CELL COUNT 4.56 10/6/uL (4.0-5.6)
[2017-02-15 03:13] LABS: ER CBC TAT 0 Hrs 04 MinsNP; MANUAL DIFF NO %
[2017-02-15 03:19] LABS: PARTIAL THROMBO TIME 29.4 SEC (22.5-37.2); PROTIME (NOT ORD) 12.9 SEC (12.0-14.5)
[2017-02-15 03:27] LABS: ALBUMIN 4.1 G/DL (3.5-5.0); BUN (BLOOD UREA NITROGEN) 12 MG/DL (6-23); CALCIUM, SERUM 9.4 MG/DL (8.5-10.4); CHLORIDE, SERUM 105 MMOL/L (96-112); CO2 (CARBON DIOXIDE) 28 MMOL/L (24-34); CREATININE 1.13 MG/DL (0.55-1.02); GFR AFRICAN AMERICAN 59 ML/MIN (>=60); GFR NON AFRICAN AMERICAN 51 ML/MIN (>=60); GLUCOSE, SERUM 112 MG/DL (60-99); POTASSIUM, SERUM 3.5 MMOL/L (3.5-5.3); SGOT(AST) 29 U/L (5-40); SGPT(ALT) 32 U/L (5-65); SODIUM, SERUM 142 MMOL/L (135-148); TOTAL BILIRUBIN 0.3 MG/DL (0-1.2); TOTAL PROTEIN 7.6 G/DL (6.0-8.5)
[2017-02-15 03:28] LABS: A/G RATIO 1.2 (0.7-1.9); ALKALINE PHOSPHATASE 62 U/L (45-117); GLOBULIN 3.5 G/DL (2.5-4.1)
== END 2017-02-15 04:41 | disposition home or self-care (01) ==
LOC: ER 02:54
PROVIDERS: Emergency Medicine
DX: J47.9 Bronchiectasis, uncomplicated (principal); E11.9 Type 2 diabetes mellitus without complications; Z87.01 Personal history of pneumonia (recurrent); Z79.52 Long term (current) use of systemic steroids; Z79.891 Long term (current) use of opiate analgesic; Z79.84 Long term (current) use of oral hypoglycemic drugs; Z79.82 Long term (current) use of aspirin; Z79.899 Other long term (current) drug therapy
CPT/HCPCS: 71010; 80053; 85025; 85610; 85730; 87040; 93005; 96365; 96375; 99285; J1956; J2930